=== PATIENT | male | born 1970 | race Caucasian/White ===

== ENCOUNTER → 2016-06-30 | Outpatient (CLI) | payer OTHER ==
[~2016-06-30] MED LIST: ATEN50TA8 PO; GEMF600T3 PO; INSDGI SC; INSUINJ14 SC; LISI-787 PO; METF-384 PO; NIFE30TA83 PO; ZCR40 PO
[2016-06-30 10:56] LABS: BLOOD UREA NITROGEN 23 mg/dl (7-18); BUN/CREATININE RATIO 17.8 (10-20); CALCIUM 10.2 mg/dl (8.5-10.1); CARBON DIOXIDE 28 mmol/L (21-32); CHLORIDE 102 mmol/L (98-107); GLUCOSE 180 mg/dl (70-99); POTASSIUM 4.1 mmol/L (3.5-5.1); SODIUM 138 mmol/L (136-145)
[2016-06-30 11:54] LABS: RATIO 35.6 mcg/mg (0-30.0)
== END | disposition home or self-care (01) ==
LOC: C.LAB1850 09:39
PROVIDERS: ATTEND Nurse Practitioner Family
DX: E11.40 Type 2 diabetes mellitus with diabetic neuropathy, unspecified (principal)

== ENCOUNTER → 2016-07-01 | Outpatient (CLI) | payer OTHER ==
[2016-07-01 11:32] LABS: ESTIMATED AVERAGE GLUCOSE 192 mg/dl; HA1C FLAG Normal (Normal)
== END | disposition home or self-care (01) ==
LOC: C.LAB1850 09:12
PROVIDERS: ATTEND Nurse Practitioner Family
DX: E11.65 Type 2 diabetes mellitus with hyperglycemia (principal)

== ENCOUNTER → 2016-10-06 | Outpatient (CLI) | payer OTHER ==
[~2016-10-06] VITALS: Ht 185.4 cm; Wt 121.3 kg
[2016-10-06 13:08] VITALS: BP 147/90; PULSE 78; Ht 185.4 cm; Wt 121.3 kg
== END | disposition home or self-care (01) ==
LOC: C.NEUR 12:19
PROVIDERS: ATTEND Internal Medicine Pulmonary Disease
DX: G47.30 Sleep apnea, unspecified (principal); R53.83 Other fatigue

== ENCOUNTER → 2016-10-21 | Outpatient (CLI) | payer OTHER ==
[2016-10-21 12:19] LABS: BASO % 0.5 %; BASO ABS # 0.03 K/uL (0-0.2); COMPLETE YES; HEMATOCRIT 37.8 % (42-52); IG% 0.5 %; LYMPH % 33.4 %; LYMPH ABS # 2.06 K/uL (1.2-3.4); MEAN CELL VOLUME 92.4 fL (80-100); MEAN CORPUSCULAR HEMOGLOBIN 30.6 pg (25-34); MEAN CORPUSCULAR HGB CONC 33.1 g/dl (32-36); MEAN PLATELET VOLUME 10.8 fL (7.4-10.4); MONO % 7.6 %; PLATELET COUNT 336 K/uL (130-400); RED BLOOD COUNT 4.09 M/uL (4.7-6.1); WHITE BLOOD COUNT 6.16 K/uL (4.8-10.8)
[2016-10-21 12:27] LABS: MANUAL MICROSCOPIC REQUIRED? NO; REVIEW REQ? NO; URINE APPEARANCE CLEAR (CLEAR); URINE BILIRUBIN NEG (NEG); URINE COLOR YELLOW; URINE EPITHELIAL CELL AUTO 0-5 /lpf (0-5); URINE NITRITE NEG (NEG); URINE PH 5.5 (4.5-7.5); UROBILINOGEN NEG (NEG)
[2016-10-21 12:43] LABS: BLOOD UREA NITROGEN 21 mg/dl (7-18); CARBON DIOXIDE 28 mmol/L (21-32); CHLORIDE 105 mmol/L (98-107); GLUCOSE 132 mg/dl (70-99); POTASSIUM 4.3 mmol/L (3.5-5.1); SODIUM 139 mmol/L (136-145)
[2016-10-21 12:44] LABS: ESTIMATED AVERAGE GLUCOSE 194 mg/dl; HA1C FLAG Normal (Normal)
== END | disposition home or self-care (01) ==
LOC: C.LAB1850 08:51
PROVIDERS: ATTEND Physician Assistant
DX: N20.0 Calculus of kidney (principal); E11.65 Type 2 diabetes mellitus with hyperglycemia; I12.9 Hypertensive chronic kidney disease with stage 1 through stage 4 chronic kidney disease, or unspecified chronic kidney disease; N18.3 Chronic kidney disease, stage 3 (moderate)

== ENCOUNTER → 2016-11-17 | Outpatient (CLI) | payer OTHER ==
--- NOTE | 2016-11-18 06:01 | PAP/PSG TECHNICIAN REPORT ---
[facility] Rn Digestive Polysomnogram Report Study name: None Report date: 11/18/2016 Study date: 11/17/2016 Referring Physician: DR. ARORA Name: NGHIA RODRIGUEZ Interpreting Physician: Niels Arora M.D. Date of : 1970 Rn Digestive: Heather Lawrence [facility]. Sex: Male Age: 46 Study Type: PSG PAP Weight: 267 lbs 19 in Height: 46 years, Height 6' 1" Neck Circum: BMI: 35.22 Medications: ALLOPURINOL 300 MG, ASPIRIN 81 MG, ATENOLOL 50 MG, COLCRYS 0.6 MG, GEMFIBROZIL 600 MG, LISINOPRIL-HYDROCHLOROTHIAZIDE 20-12.5 MG, METFORMIN 1000 MG, NIFEDIPINE 30 MG, NOVOLOG FLEXPEN 100 UNIT/ML, POTASSIUM CITRATE 10 MEQ, SIMVASTATIN 40 MG, TRESIBA FLEXTOUCH 200 UNIT/ML Patient History 46 yr-old male here for a new CPAP treatment study. He was found to be positive for MICHAEL via a home sleep study. His AHI was 12.4. He chose a Mirage FX Soft edge nasal mask size standard from [employer]. The test was started on room air and 4 CMH2O. ETCO2 testing was not utilized during this study. Room 3 Parameters Monitored NPSG: E1-M2, E2-M1, Fp1-M2, Fp2-M1, F3-M2, F4-M2, F4-M1, C3-M2, C4-M2, C4-M1, O1-M2, O2-M2, O2-M1, T3-M2, T4-M1, P3-M2, P4-M1, CHIN1, CHIN2, HR, EKG, Legs, PFLOW, SNOR, FLOW, CFLOW, Tidal Volume, THOR, ABDO, SpO2, PLTH, CPRESS, ETCO2 Wave, ETCO2, pH Sleep Architecture Sleep Stages Time at Lights Off 9:37:02 PM STAGES Time (min.) TST (%) Time at Lights On 5:31:32 AM Wake 28.0 -- Total Recording Time (TRT) 474.50 min. N1 32.0 7 Total Sleep Period (TSP) 458.0 min. N2 306.5 69 Total Sleep Time (TST) 446.5min. N3 49.0 11 Awake Time 28.0 min. REM 59.0 13 Wake after Sleep Onset 11.5 min. Sleep Efficiency (SE) 94 % Sleep Onset Latency (LUPE) 16.5 min. Number of Stage 1 Shifts None Awakenings 9 Stage Changes 73 Number of REM periods 4 REM 59.0 13 REM Latency 187.0 min. NREM 387.5 87 Body Position Analysis Supine Right Left Side Prone Vertical Total Sleep Time (min.) 282.4 187.2 0.0 187.25 0.0 0.0 Total Sleep Time (%) 58% 42% 0% 42 0% N/A% Total Sleep Time REM (min.) 21.5 37.5 0.0 None 0.0 0.0 Total Sleep Time NREM (min.) 237.8 149.7 0.0 None 0.0 0.0 Intermittent Wake (min.) 23.2 4.8 0.0 None 0.0 0.0 Total Sleep Period (%) 58% None None None None None Arousals Myoclonus (PLM) * Events Count Index Events Count Index Spontaneous 19 3 Events Awake (PLMW) 11 23.6 Respiratory 5 0.7 Events Asleep w/ Arousal (PLMA) 6 0.8 PLM 6 1 Events Asleep w/o Arousal (PLMS) 140 18.8 Snoring 10 1 Total Asleep 146 19.6 Total 40 5 Total 157 20 Respiratory Analysis * CA OA MA CH H RERA Total Count 3 1 0 0 15 2 19 Index 0.4 0.1 0.0 0 2.0 0 2.8 Mean Duration 15.2 20.2 0.0 0.00 22.6 24.3 21.6 Longest Duration 16.7 20.2 0.0 0.00 0.0 25.1 29.6 Respiratory Event Summary Total Supine ~Supine Right Left Prone REM NREM Apneas Count 4 3 1 1 N/A N/A 1 3 Index 0.5 1 0 0.3 N/A N/A 1 0 Hypopneas (4% Desat) Count 15 12 3 3 N/A N/A 0 15 Index 2.0 2.8 1 1.0 N/A N/A 0.0 2.3 Apneas & All Hypopneas Count 19 15 4 4 N/A N/A 1 18 Index 2.6 3 1 1 N/A N/A 1.0 2.8 Respiratory Events (Hospital Attendant+All Hyp+RERA) Count 19 16 5 5 N/A N/A 1 18 Index 2.8 4 2 1.6 N/A N/A 1.0 3.1 Respiratory Related Arousal Count 5 16 1 1 N/A N/A 0 5 Index 0.7 1 0 0 N/A N/A 0 1 Snoring Analysis Supine Right Left Prone REM NREM Total Snore duration 22.1 min Snores count 434 405 N/A N/A 5 834 839 Snore mean duration 1.6 Sec Snores index 100 130 N/A N/A 5.1 129.1 112.7 TST with snoring (%) 5.0% Desaturation Event Summary: Minimum %SpO2 Event Count Mean/Min/Max Duration(sec.) Desaturation Index % Time In Bed > 90 40 27.3 / 5.5 / 60.0 5.1 98.4 86 - 90 0 N/A 0.0 1.6 81 - 85 0 N/A 0.0 0.0 76 - 80 0 N/A 0.0 0.0 71 - 75 0 N/A 0.0 0.0 66 - 70 0 N/A 0.0 0.0 61 - 65 0 N/A 0.0 0.0 56 - 60 0 N/A 0.0 0.0 51 - 55 0 N/A 0.0 0.0 < 50 0 N/A 0.0 0.0 Total REM NREM Awake <50% 0.0 min. 0.0 min. 0.0 min. 0.0 min. 51 - 60% 0.0 min. 0.0 min. 0.0 min. 0.0 min. 61 - 70% 0.0 min. 0.0 min. 0.0 min. 0.0 min. 71 - 80% 0.0 min. 0.0 min. 0.0 min. 0.0 min. 81 - 90% 7.6 min. 0.1 min. 6.9 min. 0.6 min. 91 - 100% 466.7 min. 58.9 min. 380.6 min. 27.2 min. Average 93 94 93 94 Minimum SpO2 87 88 87 90 Desaturation Event Index 5.1 3.1 4.8 15.0 # Desat. Events below 89% 2 1 1 N/A Time(%) with Saturation below 89% 0.1 0.0 0.1 0.0 Time(min.) with Saturation below 89% 0.6 0.1 0.5 0.0 Time (mins) REM (mins) NREM (mins) % of TST SpO2 Below 90% 12 1 N11 0.4 SpO2 Below 88% 0 0 0 0 Heart Rate Analysis Min (bpm) Max (bpm) Average (bpm) Awake 54 88 69 NREM 51 85 65 REM 60 75 67 Overall 51 85 65 Supplemental O2 Values Minimum O2 level: None Value Start Time End Time Rn Digestive Comments Mr. Rodriguez slept in the right and supine positions. Occasional cardiac arrhythmias were noted (please refer to the print outs). No bruxism noted. CPAP was initiated at +4 CMH2O and up-titrated to a level of +8 CMH2O, Cflex which nearly eliminated all respiratory events and snoring. A Mirage FX Soft edge nasal mask size standard from [employer] was used during titration. He did not wake up to use the restroom during the night. Mr. Rodriguez stated that he slept ok. The final report will be interpreted and signed by a sleep physician. The completed physician report will then be placed in the patient medical record. Therapy Event: Therapy (cm H20) 4 6 7 8 Total Time at Pressure (min.) 39.3 170.3 75.1 189.8 TST at Pressure (min.) 20.3 169.3 73.1 183.8 # Periods 1 1 1 1 Sleep Onset (min.) 16.5 0.0 0.0 0.0 REM Onset (min.) N/A 164.2 0.0 4.8 Sleep Efficiency % 51 99 97 96 Wakefulness (%) 48.4 0.6 2.7 3.2 Wakefulness (min.) 19.0 1.0 2.0 6.0 NREM 1 (%) 24.2 2.9 4.7 7.4 NREM 1 (min.) 9.5 5.0 3.5 14.0 NREM 2 (%) 27.5 72.9 72.2 61.8 NREM 2 (min.) 10.8 124.2 54.2 117.3 NREM 3 (%) 0.0 20.0 0.0 7.9 NREM 3 (min.) 0.0 34.0 0.0 15.0 REM (%) 0.0 3.6 20.5 19.8 REM (min.) 0.0 6.1 15.4 37.5 # Arousals 8 11 7 14 Arousal Index 23.7 3.9 5.7 4.6 # Snore 42 571 184 42 Snore Index 124.2 202.3 151.1 13.7 AHI 11.8 2.5 4.1 1.0 AHI Supine 18.5 3.8 4.7 0.8 AHI Non-Supine 8.7 0.0 0.0 1.1 NREM AHI 11.8 2.6 5.2 0.8 REM AHI N/A 0.0 0.0 1.6 RDI 11.8 3.2 4.1 1.0 # Obstructive 0 0 1 0 # Central Ap 0 0 1 2 # Mixed 0 0 0 0 # Hypopneas 4 7 3 1 RERAS 0 2 0 0 Total Respiratory Events 4 9 5 3 Time Below SpO2 89.00% (min.) 0.0 0.4 0.1 0.1 Mean NREM SpO2 (%) 92 93 94 94 Mean REM SpO2 (%) N/A 93 94 94 Mean Sleep SpO2 (%) 92 93 94 94 Min NREM SpO2 (%) 89 87 88 91 Min REM SpO2 (%) N/A 92 92 88 Position Supine (min.) 6.5 111.4 64.4 77.0 Position Non-supine (min.) 13.8 57.9 8.7 106.9 LM Index Sleep 0.0 25.5 55.0 2.3 LM Index NREM 0.0 26.5 66.6 0.4 LM Index REM N/A 0.0 11.7 9.6 Mean Heart Rate (bpm) 69 68 64 62 Min Heart Rate (bpm) 63 61 58 51
--- NOTE | 2016-11-23 17:10 | POLYSOMNOGRAPH REPORT ---
CLINICAL DATA: A 46-year-old male with BMI of 35, referred for a CPAP titration study. He had a home sleep apnea test done earlier this year which showed mild sleep apnea with an AHI of 12.4. He chose a Mirage FX soft edge nasal mask size standard from [employer]. SLEEP ARCHITECTURE: Total recording time was 474.5 minutes. Total sleep period was 458 minutes. Total sleep time was 446.5 minutes divided between 387.5 minutes of non-REM sleep and 59 minutes of REM sleep. Sleep onset latency was 16.5 minutes. REM latency was mildly delayed at 187 minutes. Sleep efficiency was 94%. Awake after sleep onset was 11.5 minutes. Sleep consisted of stage N1 7%, stage N2 69%, stage N3 11%, and REM 13%. AROUSAL DATA: Forty arousals were recorded for an index of 5 per hour. PERIODIC LIMB MOVEMENTS DATA: Mildly elevated limb movements during sleep were noted. There were 146 limb movements during sleep were noted for an index of 19.6 per hour with arousal index of 0.8 per hour. RESPIRATORY DATA: The AHI was 2.6. There were 3 central and 1 obstructive apneic episodes. The longest apnea episode was 20.2 seconds. There were 15 hypopneic episodes with mean duration of 22.6 seconds. OXIMETRY DATA: No significant hypoxemia was seen. Oxygen coni was 87%. Mean saturation was 93%. Time below 88% was less than one minute. ELECTROCARDIOGRAM: Heart rate ranged from 51-85 beats per minute.PAC's with aberrant conduction were seen occasionally. SURVEILLANCE INVESTIGATOR'S COMMENTS: The patient slept in the right and supine positions. CPAP was started and titrated up to 8 cm of water pressure. At his final pressure setting, patient slept for 183.8 minutes with an AHI of 1. IMPRESSION: Mild sleep apnea/hypopnea corrected with CPAP 8 cm of water pressure, C-Flex #1 using a Mirage FX soft edge nasal mask size standard from [employer]. RECOMMENDATIONS: The patient should be seen back in followup and started on CPAP at the above noted pressure settings. [facility]
== END | disposition home or self-care (01) ==
LOC: C.NEUR 21:00
PROVIDERS: ATTEND Internal Medicine Pulmonary Disease
DX: G47.33 Obstructive sleep apnea (adult) (pediatric) (principal); R53.83 Other fatigue; G57.30 Lesion of lateral popliteal nerve, unspecified lower limb

== ENCOUNTER → 2016-12-29 | Outpatient (CLI) | payer OTHER ==
[~2016-12-29] VITALS: Ht 185.4 cm; Wt 118.1 kg
[2016-12-29 12:37] VITALS: BP 116/72; PULSE 80; Ht 185.4 cm; Wt 118.1 kg
== END | disposition home or self-care (01) ==
LOC: C.NEUR 12:05
PROVIDERS: ATTEND Internal Medicine Pulmonary Disease
DX: G47.30 Sleep apnea, unspecified (principal); R53.83 Other fatigue

== ENCOUNTER → 2017-02-18 | Outpatient (CLI) | payer OTHER ==
[2017-02-18 10:08] LABS: ESTIMATED AVERAGE GLUCOSE 146 mg/dl; HA1C FLAG Normal (Normal)
[2017-02-18 10:12] LABS: RATIO 7.2 mcg/mg (0-30.0)
== END | disposition home or self-care (01) ==
LOC: C.LAB1850 07:58
PROVIDERS: ATTEND Nurse Practitioner Family
DX: E11.65 Type 2 diabetes mellitus with hyperglycemia (principal); E11.21 Type 2 diabetes mellitus with diabetic nephropathy

== ENCOUNTER → 2017-02-26 | Outpatient (CLI) | payer OTHER | END | disposition home or self-care (01) | LOC: C.LAB1850 07:55 | PROVIDERS: ATTEND Nurse Practitioner Family | DX: E11.65 Type 2 diabetes mellitus with hyperglycemia (principal) ==

== ENCOUNTER → 2017-03-16 | Outpatient (CLI) | payer OTHER ==
[~2017-03-16] VITALS: Ht 185.4 cm; Wt 118.9 kg
[2017-03-16 15:13] VITALS: BP 114/76; PULSE 101; Ht 185.4 cm; Wt 118.9 kg
== END | disposition home or self-care (01) ==
LOC: C.NEUR 13:10
PROVIDERS: ATTEND Physician Assistant Medical
DX: G47.30 Sleep apnea, unspecified (principal); E11.65 Type 2 diabetes mellitus with hyperglycemia

== ENCOUNTER → 2017-06-11 | Outpatient (CLI) | payer OTHER ==
[2017-06-11 10:00] LABS: HEMOGLOBIN A1C 7.1 % (4.5-5.6)
== END | disposition home or self-care (01) ==
LOC: C.LAB1850 08:03
PROVIDERS: ATTEND Internal Medicine
DX: G47.30 Sleep apnea, unspecified (principal)

== ENCOUNTER → 2017-06-11 | Outpatient (CLI) | payer OTHER ==
[~2017-06-11] VITALS: Ht 185.4 cm; Wt 259.2 kg
[2017-06-11 15:58] VITALS: BP 150/90; PULSE 80; Ht 185.4 cm; Wt 259.2 kg
== END | disposition home or self-care (01) ==
LOC: C.NEUR 14:48
PROVIDERS: ATTEND Internal Medicine Pulmonary Disease
DX: G47.30 Sleep apnea, unspecified (principal); R53.83 Other fatigue; E66.9 Obesity, unspecified; Z68.34 Body mass index [BMI] 34.0-34.9, adult; Z79.899 Other long term (current) drug therapy; I12.9 Hypertensive chronic kidney disease with stage 1 through stage 4 chronic kidney disease, or unspecified chronic kidney disease; E11.22 Type 2 diabetes mellitus with diabetic chronic kidney disease; N18.3 Chronic kidney disease, stage 3 (moderate)